=== PATIENT | female | born 1960 | race Caucasian/White ===

== ENCOUNTER 2018-05-07 12:21 | Outpatient (REF) | payer MEDICAID, SELFPAY ==
[2018-05-09 11:35] LABS: Campylobacter PCR SEE COMMENTS; Salmonella PCR SEE COMMENTS; Shiga Toxin PCR SEE COMMENTS; Shigella/Enteroinvasive Ecoli SEE COMMENTS
== END 2018-05-07 12:41 ==
LOC: NCHCN 12:21
PROVIDERS: PCP Family Medicine; Visit Provider Nurse Practitioner Family
DX: R19.7 Diarrhea, unspecified (principal); R11.0 Nausea
CPT/HCPCS: 87329; 87505; 83630; 87177

== ENCOUNTER 2018-10-02 12:06 | Outpatient (REF) | payer MEDICAID, SELFPAY ==
[2018-10-02 22:34] LABS: Anion Gap 9.8 mmol/L (3-11); BUN 11 mg/dL (7-18); CO2 29.2 mmol/L (21.0-32.0); CREATININE 0.81 mg/dL (0.55-1.02); Calculated LDL 95 mg/dL; Chloride 104 mmol/L (98-107); Cholesterol 185 mg/dL (50-200); Glucose 95 mg/dL (70-100); HDL Cholesterol 80 mg/dL (40-60); Potassium 4.5 mmol/L (3.5-5.1); Sodium 143 mmol/L (136-145); TSH (W/Ref FT4) 0.91 uIU/mL (0.36-3.74); Triglyceride 50 mg/dL (30-150)
== END 2018-10-02 12:26 ==
LOC: NCHCN 12:06
PROVIDERS: PCP Family Medicine; Visit Provider Internal Medicine
DX: Z13.220 Encounter for screening for lipoid disorders (principal); E03.9 Hypothyroidism, unspecified
CPT/HCPCS: 80048; 80061; 83721; 84443

== ENCOUNTER 2019-08-05 11:39 | Outpatient (REF) | payer MEDICAID, SELFPAY ==
[2019-08-05 20:59] LABS: Abs Immature Grans 0.02 k/cumm (0.0-0.09); Absolute Basophil Count 0.02 k/cumm (0.0-0.2); Absolute Eosinophil Count 0.13 k/cumm (0.0-0.7); Absolute Neutrophil Count 3.29 k/cumm (1.2-6.7); Basophils % 0.4; Eosinophils % 2.7; HCT 40.8 % (36.0-46.0); HGB 13.4 g/dL (12.0-15.5); Immature Grans % 0.4 %; Lymphocytes % 20.6; Mean Corp. HGB Concentration 32.8 g/dL (32.0-36.0); Mean Corpuscular Hemoglobin 31.2 pg (27.0-33.0); Mean Corpuscular Volume 94.9 fL (80-95); Mean Platelet Volume 9.3 fL (8.0-11.0); Monocytes % 8.2; Neutrophils % 67.7; Platelet Count 327 x1000/uL (130-400); RBC Distribution Width 12.7 % (11.7-14.6); White Blood Cell Count 4.86 k/cumm (4.4-10.8)
[2019-08-05 21:32] LABS: TSH 4.63 uIU/mL (0.36-3.74)
== END 2019-08-05 11:59 ==
LOC: NCHCN 11:39
PROVIDERS: PCP Family Medicine; Visit Provider Internal Medicine
DX: R53.83 Other fatigue (principal); E66.3 Overweight
CPT/HCPCS: 84443; 85025

== ENCOUNTER 2019-10-09 10:08 | Outpatient (REF) | payer MEDICAID, SELFPAY | END 2019-10-09 10:28 | LOC: NCHCN 10:08 | PROVIDERS: PCP Family Medicine; Visit Provider Internal Medicine | DX: E03.9 Hypothyroidism, unspecified (principal); R53.83 Other fatigue; E66.3 Overweight | CPT/HCPCS: 84443 ==

== ENCOUNTER 2020-01-08 10:18 | Outpatient (REF) | payer MEDICAID, SELFPAY ==
[2020-01-08 22:49] LABS: TSH 0.38 uIU/mL (0.36-3.74)
== END 2020-01-08 10:38 ==
LOC: NCHCN 10:18
PROVIDERS: PCP Family Medicine; Visit Provider Internal Medicine
DX: E03.9 Hypothyroidism, unspecified (principal)
CPT/HCPCS: 84443

== ENCOUNTER 2020-07-16 08:13 | Outpatient (REF) | payer MEDICAID, SELFPAY ==
[2020-07-16 13:39] LABS: Calculated LDL 146 mg/dL (<100); Cholesterol 238 mg/dL (<200); HDL Cholesterol 85 mg/dL (40-60); TSH 2.76 uIU/mL (0.36-3.74); Triglyceride 37 mg/dL (<150)
== END 2020-07-16 08:14 | disposition home or self-care (01) ==
LOC: NCHCN 08:13
PROVIDERS: PCP Family Medicine; Visit Provider Internal Medicine
DX: E78.5 Hyperlipidemia, unspecified (principal); E03.9 Hypothyroidism, unspecified
CPT/HCPCS: 80061; 84443

== ENCOUNTER 2020-09-21 12:02 | Outpatient (REF) | payer MEDICAID, SELFPAY ==
[2020-09-21 14:40] LABS: TSH 1.07 uIU/mL (0.36-3.74)
== END 2020-09-21 12:03 | disposition home or self-care (01) ==
LOC: NCHCN 12:02
PROVIDERS: PCP Family Medicine; Visit Provider Internal Medicine
DX: E03.9 Hypothyroidism, unspecified (principal)
CPT/HCPCS: 84443

== ENCOUNTER 2022-09-09 15:56 | Outpatient (REF) | payer MEDICAID, SELFPAY ==
[2022-09-09 21:32] LABS: HCT 38.2 % (36.0-46.0); HGB 12.2 g/dL (11.2-15.7); MCH 30.6 pg (27.0-33.0); MCHC 31.9 % (32.0-36.0); MCV 96 fL (80-95); MPV 9.2 fL (8.0-11.0); Platelet Count 323 10^3/uL (130-400); RBC 3.99 10^6/uL (3.93-5.22); RDW 13.4 % (11.7-14.6); RDW-SD 47.3 fL; WBC 7.22 10^3/uL (4.4-10.8)
[2022-09-09 22:31] LABS: TSH 0.39 uIU/mL (0.36-3.74)
[2022-09-12 10:28] LABS: Lyme Ab w Rflx to Lyme Confirm Negative (Negative)
== END 2022-09-09 15:57 | disposition home or self-care (01) ==
LOC: NCHCN 15:56
PROVIDERS: PCP Family Medicine; Visit Provider Internal Medicine
DX: E03.9 Hypothyroidism, unspecified (principal); R53.83 Other fatigue; Z11.8 Encounter for screening for other infectious and parasitic diseases
CPT/HCPCS: 85027; 84443; 86618

== ENCOUNTER 2022-09-14 11:59 | Outpatient (REF) | payer MEDICAID, SELFPAY ==
[2022-09-14 16:03] LABS: Vitamin B12 520 pg/mL (193-986)
== END 2022-09-14 12:00 | disposition home or self-care (01) ==
LOC: NCHCN 11:59
PROVIDERS: PCP Family Medicine; Visit Provider Internal Medicine
DX: D75.89 Other specified diseases of blood and blood-forming organs (principal); Z86.39 Personal history of other endocrine, nutritional and metabolic disease
CPT/HCPCS: 82607

== ENCOUNTER 2023-02-22 13:06 | Outpatient (REF) | payer MEDICAID, SELFPAY ==
[2023-02-22 20:44] LABS: Abs Immature Grans 0.02 10^3/uL (0.0-0.06); Absolute Basophil Count 0.05 10^3/uL (0.0-0.2); Absolute Eosinophil Count 0.18 10^3/uL (0.0-0.7); Absolute Lymphocyte Count 1.39 10^3/uL (1.2-3.4); Absolute Monocyte Count 0.55 10^3/uL (0.1-0.8); Absolute Neutrophil Count 4.46 10^3/uL (1.2-6.7); Basophils % 0.8; Eosinophils % 2.7; HCT 41.1 % (36.0-46.0); Immature Grans % 0.3; Lymphocytes % 20.9; MCH 30.5 pg (27.0-33.0); MCHC 31.6 % (32.0-36.0); MCV 97 fL (80-95); Monocytes % 8.3; Platelet Count 348 10^3/uL (130-400); RBC 4.26 10^6/uL (3.93-5.22); RDW 13.3 % (11.7-14.6); RDW-SD 47.7 fL; WBC 6.65 10^3/uL (4.4-10.8)
[2023-02-22 21:24] LABS: ALT 27 U/L (14-59); AST 14 U/L (15-37); Albumin 3.9 g/dL (3.4-5.0); Alkaline Phosphatase 70 U/L (46-116); Anion Gap 4.8 mmol/L (3-11); BUN 10 mg/dL (7-18); Bilirubin, Total 0.4 mg/dL (0.2-1.0); CO2 30.2 mmol/L (21.0-32.0); CREATININE 0.9 mg/dL (0.55-1.02); Calcium 9.6 mg/dL (8.5-10.1); Chloride 106 mmol/L (98-107); Estimated GFR 72.73 (mL/min/1.73m2); Glucose 102 mg/dL (74-106); Potassium 4.8 mmol/L (3.5-5.1); Sodium 141 mmol/L (136-145); TSH 0.58 uIU/mL (0.36-3.74); Total Protein 7.5 g/dL (6.4-8.2)
== END 2023-02-22 13:07 | disposition home or self-care (01) ==
LOC: NCHCN 13:06
PROVIDERS: PCP Family Medicine; Visit Provider Internal Medicine
DX: R10.30 Lower abdominal pain, unspecified (principal)
CPT/HCPCS: 80053; 84443; 85025

== ENCOUNTER 2024-11-27 16:19 | Outpatient (REF) | payer MEDICAID, SELFPAY ==
[2024-11-27 21:17] LABS: Anion Gap 7.5 mmol/L (3-11); BUN 13 mg/dL (7-18); CO2 29.5 mmol/L (21.0-32.0); Calcium 9.2 mg/dL (8.5-10.1); Calculated LDL 116 mg/dL (<100); Chloride 104 mmol/L (98-107); Cholesterol 238 mg/dL (<200); Estimated GFR 63.70 (mL/min/1.73m2); Glucose 94 mg/dL (74-106); HDL Cholesterol 76 mg/dL (>or=50); Potassium 4.4 mmol/L (3.5-5.1); Sodium 141 mmol/L (136-145); TSH 4.20 uIU/mL (0.36-3.74); Triglyceride 232 mg/dL (<150)
== END 2024-11-27 16:20 | disposition home or self-care (01) ==
LOC: NCHCN 16:19
PROVIDERS: PCP Family Medicine; Visit Provider Internal Medicine
DX: R53.83 Other fatigue (principal); E03.9 Hypothyroidism, unspecified
CPT/HCPCS: 80048; 80061; 84443

== ENCOUNTER 2025-01-22 13:13 | Outpatient (REF) | payer MEDICAID, SELFPAY ==
[2025-01-22 15:34] LABS: TSH 5.37 uIU/mL (0.55-4.78)
== END 2025-01-22 13:14 | disposition home or self-care (01) ==
LOC: NCHCN 13:13
PROVIDERS: PCP Family Medicine; Visit Provider Internal Medicine
DX: E03.9 Hypothyroidism, unspecified (principal)
CPT/HCPCS: 84443